=== PATIENT | male | born 1930 | race Caucasian/White ===

== ENCOUNTER 2017-07-29 10:50 | Outpatient (RCR) | payer MEDICARE | END 2017-08-14 | disposition home or self-care (01) | LOC: PTY 10:50 | DX: M54.5 Low back pain (principal) | CPT/HCPCS: 97110; 97161; G8978; G8979 ==

== ENCOUNTER 2017-08-19 10:45 | Outpatient (RCR) | payer MEDICARE | END 2017-09-14 | disposition home or self-care (01) | LOC: PTY 10:45 | DX: M54.5 Low back pain (principal) | CPT/HCPCS: 97110; G8979; G8980 ==